=== PATIENT | male | born 1975 | race Caucasian/White ===

== ENCOUNTER → 2020-08-18 07:15 | Outpatient (CLI) | payer OTHER | END | disposition home or self-care (01) | LOC: LAB 07:15 | PROVIDERS: ATTEND Emergency Medicine Pediatric Emergency Medicine | DX: Z03.818 Encounter for observation for suspected exposure to other biological agents ruled out (principal) ==

== ENCOUNTER 2021-03-09 09:46 | Emergency (ER) | payer OTHER ==
[~2021-03-09] VITALS: Ht 175.3 cm; Wt 77.1 kg
[2021-03-09] MEDS ORDERED: PROVENTIL HFA6.7 GM IH (15:46)
[2021-03-09] MEDS ORDERED: MEDROLPACK PO (15:46)
[2021-03-09] MEDS ORDERED: TUSSI-PRES B LIQ5 ML PO (15:46)
== END 2021-03-09 16:08 | disposition home or self-care (01) ==
LOC: ER 09:46
DX: U07.1 COVID-19 (principal)